=== PATIENT | male | born 1935 | race Caucasian/White ===

== ENCOUNTER 2016-06-03 12:28 | Emergency (ER) | payer MEDICARE, OTHER ==
[~2016-06-03 12:28] MED LIST: ACTIVASE (50 MG/50 M IV; ADULT LOW DOSE81 M1 PO; ADULT LOW DOSE81 MG PO; ALEVE220 MG PO; AMARYL2 MG PO; AMARYL4 M1 PO; AMARYL4 MG PO; ASPIR-LOW81 MG PO; ATENOLOL50 MG PO; AVODART0.5 M1 PO; BENADRYL25 M3 PO; BENADRYL25 MG PO; CALCIUM 600 MG1 EACH PO; CALCIUM 6001.5 G PO; CALCIUM600 MG; CELEXA20 M1 PO; CELEXA20 M2 PO; CINNAMON500 M1 PO; CINNAMON500 MG PO; CO Q-10200 MG PO; COQ-10100 M1 PO; DAPTOMYCIN; FISH OIL1 CAP; GLUCOPHAGE1000 M1 PO; GLUCOPHAGE1000 MG PO; GLUCOPHAGE500 MG; GLUCOPHAGE500 MG/TAB PO; HYDROCHLOROTHIA25 MG PO; IBUPROFEN200 M1 PO; LISINOPRIL40 MG PO; LOPRESSOR25 MG/TAB PO; LOVENOX40 MG/0.4 SQ; METOPROLOL SUCC50 MG PO; MULTIVITAMIN1 TAB PO; MULTIVITAMINS1 EAC6 PO; NIACIN50 PO; NIACIN500 MG; NORCO 5/3251 TAB PO; OMEGA 3 1,0001 EACH PO; OMEPRAZOLE20 M2 PO; OMEPRAZOLE20 M4 PO; POTASSIUM CHLO10 MEQ PO; PREDNISONE20 MG PO; PRILOSEC20 MG PO; PROVENTIL HFA6.7 GM IH; SEROQUEL25 M1 PO; SEROQUEL50 M1 PO; SIMVASTATIN40 M1 PO; SIMVASTATIN40 MG PO; TESSALON200 MG PO; TOPROL XL25 MG; TOPROL XL50 M1 PO; TOPROL XL50 MG PO; TRAMADOL HCL50 M2 PO; TRAMADOL HCL50 MG PO; TYLENOL PM EX-1 EAC4 PO; TYLENOL325 M1 PO; TYLENOL325 M2 PO; ULTRAM50 MG PO; VANCOMYCIN1 GM/VIA1 IV; ZOCOR40 MG PO; ZYRTEC10 M3 PO; ZYRTEC1010 PO; [UNRECOGNIZED DRUG - OTHER]
[2016-06-03 13:31] LABS: BASO % 1.1 % (0-2); BASO ABSOLUTE COUNT 0.1 tho/cmm (0.0-0.2); EOS % 1.9 % (0-7); EOSINOPHIL ABSOLUTE COUNT 0.1 tho/cmm (0.0-0.7); HCT-HEMATOCRIT 35.9 % (36.0-53.5); IMMATURE GRANULOCYTES ABSOLUTE 0.01 tho/cmm (0-0.03); IMMATURE GRANULOCYTES PERCENT 0.2 % (0-0.3); LYMPH % 26.6 % (20-45); LYMPH ABSOLUTE COUNT 1.6 tho/cmm (0.8-4.5); MCH (MEAN CORPUSCULAR HGB) 31.1 pg (28.0-32.0); MCHC MEAN CORPUSCULAR HGB CONC 33.4 % (32.0-36.0); MEAN PLATELET VOLUME 10.6 cmc (9.4-12.4); MONO % 13.6 % (0-12); MONOCYTE ABSOLUTE COUNT 0.8 tho/cmm (0.0-1.2); NEUTROPHIL ABSOLUTE COUNT 3.5 tho/cmm (1.6-8.0); NEUTROPHIL-AUTOMATED 3.5 tho/cmm (1.6-8.0); NEUTROPHILS % 56.6 % (40-80); PLATELET COUNT 123 tho/cmm (150-450); RED BLOOD COUNT 3.86 mil/cmm (4.40-5.70); RED CELL DISTRIBUTION WIDTH 14.2 % (12.4-16.4); WHITE BLOOD COUNT 6.2 tho/cmm (4.0-10.0)
[2016-06-03 13:50] LABS: ALB/GLOB RATIO 0.9 (0.8-2.0); ALBUMIN 3.3 g/dl (3.5-5.0); ALKALINE PHOSPHATASE 67 U/L (33-138); ALT/SGPT 25 U/L (12-78); BILIRUBIN,TOTAL 0.5 mg/dl (0.0-1.5); BLOOD UREA NITROGEN 18 mg/dl (6-24); CALCIUM 8.9 mg/dl (8.5-10.5); CARBON DIOXIDE-VENOUS 22 mmol/L (22-32); CHLORIDE 107 mmol/l (96-110); CREATININE 0.99 mg/dl (0.60-1.30); GLUCOSE 143 mg/dL (70-110); SODIUM 140 mmol/L (135-145); eGFR VALUE FOR BLACK 84 mL/Min
[2016-06-03 13:51] LABS: ANION GAP 16 mmol/L (0-20); AST/SGOT 25 U/L (10-40); POTASSIUM 4.5 mmol/L (3.7-5.1)
[2016-06-03] MEDS ORDERED: NORCO 5-325 TA1 EACH PO (15:38)
== END 2016-06-03 16:08 ==
LOC: EDMED 12:28
PROVIDERS: Emergency Medicine
DX: S22.41XA Multiple fractures of ribs, right side, initial encounter for closed fracture (principal); I25.10 Atherosclerotic heart disease of native coronary artery without angina pectoris; I25.2 Old myocardial infarction; I10 Essential (primary) hypertension; E11.9 Type 2 diabetes mellitus without complications; Z87.442 Personal history of urinary calculi; K21.9 Gastro-esophageal reflux disease without esophagitis; Z95.1 Presence of aortocoronary bypass graft; Z98.890 Other specified postprocedural states; Z79.82 Long term (current) use of aspirin; Z79.899 Other long term (current) drug therapy; W19.XXXA Unspecified fall, initial encounter; Y92.019 Unspecified place in single-family (private) house as the place of occurrence of the external cause
CPT/HCPCS: J1170; J2405; Q9967